=== PATIENT | female | born 1960 | race Caucasian/White ===

== ENCOUNTER → 2019-06-04 | Outpatient (REF) | payer OTHER | LOC: M SFHCWAGY 12:48 | PROVIDERS: ATTEND Advanced Practice Midwife | DX: Z12.4 Encounter for screening for malignant neoplasm of cervix (principal); Z01.419 Encounter for gynecological examination (general) (routine) without abnormal findings ==

== ENCOUNTER → 2019-06-04 | Outpatient (CLI) | payer BC ==
--- NOTE | 2019-06-04 11:55 | REP ---
Pelvic ultrasound including transabdominal, endovaginal and Doppler ultrasound assessment: The uterus is anteverted and upper normal size measuring 9.2 x 501 x 6.9 cm. There are three small uterine fibroids to the uterine fundus anteriorly with and one in the body of the uterus posteriorly, all measuring approximate 1 cm in size. All of these fibroids appear to be subserosal. The endometrium is thickened for patient age measuring 9 ml. There are small cysts within the endometrium. Right ovary: Right ovary is technically difficult to visualize, however, there is a 3.1 x 2.0-0.0 structure in the right adnexa, likely the left ovary. This contains a small 1.5 cm cyst. It is identified on transabdominal images and cannot be identified on endovaginal images. Left ovary: There is a round solid structure in the left adnexa measuring 4.7 x 4.0 x 3.9 cm that is uniformly hypoechoic and does not have the typical ovarian architecture. With color Doppler assessment were unable to establish vascular flow within this structure. This is questionably the left ovary. Immediately adjacent to this structure is crescentic shaped cyst measuring 3.7 x 1.2 x 2.8 cm. The study is technically difficult because of patient disability and the patient inability to be properly positioned for the examination, particularly the endovaginal portion of the examination. The the study is technically suboptimal. I would recommend pelvic MRI for further evaluation. Impression: Thickened endometrium with endometrial cysts. Subserosal 1 cm mucosal fibroids as discussed. The adnexa are poorly evaluated as discussed above. Probable small 1.5 cm right ovarian cyst. Hypoechoic solid structure in the left adnexa, likely the left ovary with a crescentic shaped paraovarian cyst, although imaging is technically difficult and suboptimal as discussed above. Pelvic MRI is recommended for further evaluation. Electronically Signed by Jerry Verma MD 06/04/2019 11:47 A
== END ==
LOC: M WHC 09:22
PROVIDERS: ATTEND Advanced Practice Midwife
DX: N95.0 Postmenopausal bleeding (principal); D25.2 Subserosal leiomyoma of uterus; N83.201 Unspecified ovarian cyst, right side; N83.202 Unspecified ovarian cyst, left side

== ENCOUNTER → 2019-07-05 | Outpatient (CLI) | payer BC, OTHER ==
--- NOTE | 2019-07-05 11:42 | REP ---
MRI PELVIS WITHOUT CONTRAST: Multiple sequences of the pelvis performed in the axial, coronal, and sagittal planes. No IV contrast was administered. Correlation made with pelvic ultrasound 06/04/2019. Uterine length is approximately 9.3 cm. Endometrial thickness is approximately 5 mm, minimally thickened. There are a few subcentimeter nabothian cysts in the region of the cervix. There are at least four fibroids identified. There is a 2 cm anterior fibroid, a 2.3 cm posterior fibroid, a posterior fundal fibroid measuring 1.5 cm and a fibroid in the left uterine body measuring approximately 2 cm in diameter. In the right ovary there is a hypointense nodule on those sequences which is somewhat hyperintense on T1. This measures about 2.0 x 2.0 x 2.5 cm, most consistent with and endometrioma. There is a nodule in the inferior aspect of the left ovary which measures approximately 3.6 cm in diameter with a peripheral septation. It is quite hyperintense on T1 and is mildly hyperintense on T2-weighted images, consistent with an endometrioma. Superiorly there is a lobulated nodule which is hyperintense on both T1 and T2 consistent with an endometrioma measuring approximately 3.5 cm in maximum diameter consistent with an endometrioma. No adenopathy is seen in the pelvis. There is no free fluid. IMPRESSION: Slight endometrial thickening at 5 mm. At least four uterine fibroids are identified. Bilateral ovarian endometriomas as discussed above. Electronically Signed by Jerry Mann MD 07/05/2019 03:16 P
== END ==
LOC: M RAD 09:28
PROVIDERS: ATTEND Obstetrics & Gynecology
DX: D25.9 Leiomyoma of uterus, unspecified (principal); N80.1 Endometriosis of ovary

== ENCOUNTER → 2019-07-26 | Outpatient (REF) | payer OTHER ==
[2019-07-26 17:46] LABS: BASO # 0.1 10^3/uL (0.0-0.2); BASO % 0.6 % (0.0-1.0); EOS % 0.3 % (0.0-3.0); HEMATOCRIT 46.7 % (36.0-47.0); HEMOGLOBIN 15.6 g/dl (12.0-15.5); LYMPH # 1.2 10^3/uL (1.5-5.0); LYMPH % 13.8 % (24.0-44.0); MEAN CORPUSCULAR HEMOGLOBIN 28.6 pg (27.0-33.0); MEAN CORPUSCULAR HGB CONC 33.4 g/dl (32.0-36.5); MEAN CORPUSCULAR VOLUME 85.7 fl (80.0-96.0); MONO # 0.5 10^3/uL (0.0-0.8); MONO % 5.6 % (0.0-5.0); NEUTROPHILS # 6.9 10^3/uL (1.5-8.5); NEUTROPHILS % 79.2 % (36.0-66.0); PLATELET COUNT, AUTOMATED 269 10^3/uL (150-450); RED BLOOD COUNT 5.45 10^6/uL (4.00-5.40); WHITE BLOOD COUNT 8.7 10^3/uL (4.0-10.0)
[2019-07-26 18:05] LABS: ALBUMIN 4.3 GM/DL (3.2-5.2); ALT/SGPT 20 U/L (12-78); BILIRUBIN,TOTAL 0.6 MG/DL (0.2-1.0); BLOOD UREA NITROGEN 12 MG/DL (7-18); CALCIUM LEVEL 9.5 MG/DL (8.8-10.2); CARBON DIOXIDE LEVEL 27 MEQ/L (21-32); CHLORIDE LEVEL 105 MEQ/L (98-107); CHOLESTEROL LEVEL 181 MG/DL (<200); CHOLESTEROL RISK RATIO 3.693 (<5); CREATININE FOR GFR 0.68 MG/DL (0.55-1.30); GLOMERULAR FILTRATION RATE > 60.0 (>45); GLUCOSE, FASTING 97 MG/DL (70-100); HDL CHOLESTEROL 49 MG/DL (>40); LDL CHOLESTEROL 113 MG/DL (<100); NON-HDL-C 132 MG/DL; POTASSIUM SERUM 4.4 MEQ/L (3.5-5.1); SODIUM LEVEL 140 MEQ/L (136-145); THYROID STIMULATING HORMONE 0.839 uIU/ML (0.358-3.740); TOTAL PROTEIN 7.8 GM/DL (6.4-8.2); TRIGLYCERIDES LEVEL 97 MG/DL (<150)
[2019-07-26 19:10] LABS: HEMOGLOBIN A1c 5.4 %
== END ==
LOC: M SFHCPLAZ 14:21
PROVIDERS: ATTEND Family Medicine
DX: R03.0 Elevated blood-pressure reading, without diagnosis of hypertension (principal); Z13.1 Encounter for screening for diabetes mellitus; Z13.220 Encounter for screening for lipoid disorders; R63.4 Abnormal weight loss

== ENCOUNTER → 2019-09-28 | Outpatient (CLI) | payer OTHER ==
[~2019-09-28] MED LIST: CHLO125TA PO
== END ==
LOC: M LABSMTC 09:36
PROVIDERS: ATTEND Anesthesiology
DX: Z01.818 Encounter for other preprocedural examination (principal); Z11.59 Encounter for screening for other viral diseases
CPT/HCPCS: C9803; U0003

== ENCOUNTER 2019-10-01 12:31 | Day surgery (SDC) | payer BC, OTHER ==
[~2019-10-01] VITALS: Ht 157.5 cm; Wt 84.0 kg
[~2019-10-01 12:31] MED LIST changes: +LR 1,000 ML IV SCH
[2019-10-01] MEDS ORDERED: ONDANSETRON 4MG/2ML VIAL IV ONE (14:00)
[2019-10-01] MEDS ORDERED: SCOPOLAMINE 1MG TRANSDERMAL PATCH TOP ONE (14:00)
[2019-10-01 14:10] LABS: BLOOD UREA NITROGEN 19 MG/DL (7-18); CALCIUM LEVEL 9.4 MG/DL (8.8-10.2); CARBON DIOXIDE LEVEL 33 MEQ/L (21-32); CHLORIDE LEVEL 102 MEQ/L (98-107); CREATININE FOR GFR 0.83 MG/DL (0.55-1.30); GLOMERULAR FILTRATION RATE > 60.0 (>45); GLUCOSE, FASTING 115 MG/DL (70-100); POTASSIUM SERUM 2.6 MEQ/L (3.5-5.1); SODIUM LEVEL 141 MEQ/L (136-145)
[2019-10-01] MEDS ORDERED: KCL 10MEQ/100ML SWI (KRUN) SINGLE DOSE IV ONE ×2 (14:30)
[2019-10-01] MEDS ORDERED: ROCURONIUM BROMIDE 50 MG/5 ML VIAL As Ordered ONE (14:58)
[2019-10-01] MEDS ORDERED: fentaNYL 250 MCG/5 ML INJECTION (J3010) As Ordered ONE (14:58)
[2019-10-01] MEDS ORDERED: LIDOCAINE 2% 100MG/5ML SDV (FOR ANES.) As Ordered ONE (14:58)
[2019-10-01] MEDS ORDERED: ONDANSETRON 4MG/2ML VIAL As Ordered ONE (14:58)
[2019-10-01] MEDS ORDERED: MIDAZOLAM INJ 2MG/2ML VIAL (J2250 PER 1MG) As Ordered ONE (14:58)
[2019-10-01] MEDS ORDERED: dexameTHASONE 4 MG/ML 1ML VIAL (J1100 PER 1MG) As Ordered ONE (14:58)
[2019-10-01] MEDS ORDERED: propofoL 200 MG/20 ML VIAL As Ordered ONE (14:58)
[2019-10-01] MEDS ORDERED: METOCLOPRAMIDE INJ 10MG/2ML VIAL (J2765 PER 1) As Ordered ONE (15:49)
[2019-10-01] MEDS ORDERED: ACETAMINOPHEN 1000MG 100ML IV BTL (OFIRMEV) (J0131 PER 10MG) As Ordered ONE (15:53)
[2019-10-01] MEDS ORDERED: KETOROLAC 60MG 2ML VIAL As Ordered ONE (15:53)
[2019-10-01] MEDS ORDERED: ePHEDrine SULFATE 25 MG/5 ML(5MG/ML) SYRINGE As Ordered ONE (16:13)
[2019-10-01] MEDS ORDERED: fentaNYL 100 MCG/2 ML INJECTION (J3010) IV PRN (17:00)
[2019-10-01] MEDS ORDERED: oxyCODONE 5MG TAB PO PRN (17:00)
[2019-10-01] MEDS ORDERED: ONDANSETRON 4MG/2ML VIAL IV PRN (17:00)
[2019-10-01] MEDS ORDERED: LR 1,000 ML IV SCH (17:00)
--- NOTE | 2019-10-01 17:14 | ROOPDOC ---
[facility] Report Of Operation Report of Operation DATE OF PROCEDURE: 10/01/19 PREOPERATIVE DIAGNOSES: 1. Postmenopausal bleeding. POSTOPERATIVE DIAGNOSES: 1. Endometrial polyp. PROCEDURE PERFORMED: 1. Hysteroscopy, dilation and curettage with MyoSure. 2. Cervical biopsy 3. Pap smear SURGEON: Isidra Torres MD CLOCK MAKER: None. ANESTHESIA: General via laryngeal mask airway ESTIMATED BLOOD LOSS: 5ml IV FLUIDS: 200 mL of lactated Ringer's solution. URINE OUTPUT: Not obtained. PREOPERATIVE ANTIBIOTICS: None. OPERATIVE FINDINGS: Patient with an approximately 1 cm posterior endometrial polyp. Bilateral ostia was visualized. Otherwise, normal appearing endometrial cavity. Raised area at 6 o'clock position of the cervix, which was biopsy. DESCRIPTION OF PROCEDURE: After informed consent was obtained written consent was reviewed, the patient brought to operating room where she was placed under general anesthesia. She was then placed in lithotomy position and was prepped and draped in normal sterile fashion. Time-out in the operating room was then performed identifying the patient, procedure be performed as well as drug allergies. Olin speculum was placed revealing the cervix. Anterior lip of the cervix grasped with a single-tooth tenaculum. The uterus then sounded to 10.5 cm. The cervix then sequentially dilated using Hanks dilators. Hysteroscope was then advanced through the cervical os and endometrial cavity was observed with the above-noted findings. MyoSure device was then placed in the hysteroscope and endometrial polyp was morcellated. Hysteroscope was then removed as well as the MyoSure. Sharp curette was then advanced through the cervical os to the level of the fundus and the uterus curetted in a 360 degree fashion. Tissue was obtained and this was sent to pathology for evaluation. Next, a cervical biopsy was taken at the 6 o'clock position. Pap smear was also obtained. The single-tooth tenaculum was then removed. Tenaculum sites were noted be hemostatic. The speculum was then removed. The patient was then taken out of lithotomy position, was awakened from general anesthesia and taken recovery in stable condition. ISIDRA TORRES MD. Oct 01, 2019 17:14
[2019-10-01] MEDS ORDERED: POTASSIUM CHLORIDE 10 MEQ SR TABLET PO ONE (17:15)
--- NOTE | 2019-10-01 17:31 | ECGEPIP ---
[facility] Test Date: 2019-10-01 Pat Name: LEI MYERS Department: Room: - Gender: Female Section Beamer: SNEHAL : 1960 Requested By: BEAR Maravilla Order Number: [id number] Reading MD: Tony Arreola Measurements Intervals [place] Rate: 77 P: 44 SC: 171 QRS: -78 QRSD: 119 T: 22 QT: 381 QTc: 432 Interpretive Statements SINUS RHYTHM POSSIBLE LEFT ATRIAL ENLARGEMENT MARKED LEFT AXIS DEVIATION POOR R WAVE PROGRESSION PATTERN CONSISTENT WITH PULMONARY DISEASE MODERATE INTRAVENTRICULAR CONDUCTION DELAY No prior tracing in the system Electronically Signed on 10-01-2019 17:31:11 EDT by Tony Arreola
[2019-10-01 19:25] VITALS: BP 135/74
== END 2019-10-01 19:25 | disposition home or self-care (01) ==
LOC: M SDC 12:31
PROVIDERS: ATTEND Obstetrics & Gynecology
DX: N84.0 Polyp of corpus uteri (principal); N95.0 Postmenopausal bleeding; I10 Essential (primary) hypertension; Z12.4 Encounter for screening for malignant neoplasm of cervix; Z85.828 Personal history of other malignant neoplasm of skin
CPT/HCPCS: 36415; 58558; 80048; 86850; 86900; 86901; 88304; 88305; 93005; G0123; J0131; J1100; J1885; J2250; J2405; J2765; J3010

== ENCOUNTER 2019-11-01 23:30 | Emergency (ER) | payer BC, OTHER ==
[~2019-11-01 23:30] MED LIST changes: -LR 1,000 ML IV SCH
[2019-11-02] MEDS ORDERED: LIDOCAINE 2% MDV 20ML VIAL As Ordered ONE (22:44)
[2019-11-02] MEDS ORDERED: BOOSTRIX/ADACEL VACCINE (DIPHTH/PERTUSS/ACELL/TETANUS) 0.5ML SYR As Ordered ONE (23:29)
== END 2019-11-02 02:30 | disposition home or self-care (01) ==
LOC: M ED 23:30
DX: F43.20 Adjustment disorder, unspecified (principal); I10 Essential (primary) hypertension; Z79.899 Other long term (current) drug therapy

== ENCOUNTER 2020-09-23 10:35 | Emergency (ER) | payer BC, OTHER ==
[~2020-09-23] VITALS: Ht 157.5 cm; Wt 80.4 kg
[2020-09-23] MEDS ORDERED: LIDOCAINE 1% MDV 20ML VIAL SC ONE (11:10)
[2020-09-23] MEDS ORDERED: ACETAMINOPHEN 500 MG TAB PO ONE (12:05)
[2020-09-23] MEDS ORDERED: BACT800T5 PO (12:06)
[2020-09-23] MEDS ORDERED: NEOSPORIN OINT 0.9 GM PKT TOP ONE (12:10)
[2020-09-23 12:13] VITALS: BP 143/77
[2020-09-24] MEDS ORDERED: NEOSPORIN TOP OINT 15GM TOP ONE (09:00)
== END 2020-09-23 12:30 | disposition home or self-care (01) ==
LOC: M ED 10:35
DX: S60.451A Superficial foreign body of left index finger, initial encounter (principal); W45.8XXA Other foreign body or object entering through skin, initial encounter; Y92.009 Unspecified place in unspecified non-institutional (private) residence as the place of occurrence of the external cause; Y93.89 Activity, other specified; Y99.8 Other external cause status; L03.011 Cellulitis of right finger; R03.0 Elevated blood-pressure reading, without diagnosis of hypertension

== ENCOUNTER → 2021-08-20 | Outpatient (CLI) | payer BC, OTHER ==
[~2021-08-20] MED LIST changes: +BACT800T5 PO
== END ==
LOC: M CARPUL 13:28
PROVIDERS: ATTEND Student in an Organized Health Care Education/Training Program
DX: I35.8 Other nonrheumatic aortic valve disorders (principal); R60.0 Localized edema

== ENCOUNTER → 2021-10-02 | Outpatient (CLI) | payer BC, OTHER ==
[2021-10-02 13:46] LABS: HEMATOCRIT 41.1 % (36.0-47.0); MEAN CORPUSCULAR HEMOGLOBIN 30.5 pg (27.0-33.0); MEAN CORPUSCULAR HGB CONC 34.1 g/dl (32.0-36.5); MEAN CORPUSCULAR VOLUME 89.5 fl (80.0-96.0); PLATELET COUNT, AUTOMATED 279 10^3/uL (150-450); RED BLOOD COUNT 4.59 10^6/uL (4.00-5.40); WHITE BLOOD COUNT 7.3 10^3/uL (4.0-10.0)
[2021-10-02 14:32] LABS: ALBUMIN 3.7 GM/DL (3.2-5.2); ALT/SGPT 15 U/L (12-78); BILIRUBIN,TOTAL 0.4 MG/DL (0.2-1.0); BLOOD UREA NITROGEN 17 MG/DL (7-18); CALCIUM LEVEL 8.7 MG/DL (8.8-10.2); CARBON DIOXIDE LEVEL 29 MEQ/L (21-32); CHLORIDE LEVEL 106 MEQ/L (98-107); CHOLESTEROL LEVEL 165 MG/DL (<200); CHOLESTEROL RISK RATIO 2.357 (<5); CREATININE FOR GFR 0.59 MG/DL (0.55-1.30); GLOMERULAR FILTRATION RATE > 60.0 (>45); GLUCOSE, FASTING 75 MG/DL (70-100); HDL CHOLESTEROL 70 MG/DL (>40); LDL CHOLESTEROL 85 MG/DL (<100); NON-HDL-C 95 MG/DL; POTASSIUM SERUM 4.3 MEQ/L (3.5-5.1); SODIUM LEVEL 140 MEQ/L (136-145); TOTAL PROTEIN 6.7 GM/DL (6.4-8.2); TRIGLYCERIDES LEVEL 50 MG/DL (<150)
== END ==
LOC: M PLALAB 11:06
PROVIDERS: ATTEND Student in an Organized Health Care Education/Training Program
DX: I10 Essential (primary) hypertension (principal); Z13.29 Encounter for screening for other suspected endocrine disorder; Z13.1 Encounter for screening for diabetes mellitus

== ENCOUNTER → 2021-11-12 | Outpatient (REF) | payer OTHER | LOC: M SFHCPLAZ 11:25 | PROVIDERS: ATTEND Family Medicine | DX: F41.8 Other specified anxiety disorders (principal) ==

== ENCOUNTER → 2021-11-12 | Outpatient (CLI) | payer OTHER | LOC: M PLALAB 11:58 | PROVIDERS: ATTEND Student in an Organized Health Care Education/Training Program | DX: F41.8 Other specified anxiety disorders (principal) ==

== ENCOUNTER 2021-12-10 11:43 | Emergency (ER) | payer BC, OTHER ==
[~2021-12-10] VITALS: Ht 154.9 cm; Wt 81.6 kg
[2021-12-10] MEDS ORDERED: LISI5TAB11 (12:06)
[2021-12-10] MEDS ORDERED: ALPR0.5T3 (12:06)
[2021-12-10] MEDS ORDERED: FLUO40CA PO (12:06)
[2021-12-10 15:23] VITALS: BP 155/82
== END 2021-12-10 15:31 | disposition short-term general hospital (02) ==
LOC: M ED 11:43
DX: S12.101A Unspecified nondisplaced fracture of second cervical vertebra, initial encounter for closed fracture (principal); S06.0X0A Concussion without loss of consciousness, initial encounter; S40.021A Contusion of right upper arm, initial encounter; W01.198A Fall on same level from slipping, tripping and stumbling with subsequent striking against other object, initial encounter; Y92.009 Unspecified place in unspecified non-institutional (private) residence as the place of occurrence of the external cause; Z79.899 Other long term (current) drug therapy

== ENCOUNTER → 2022-04-26 | Outpatient (CLI) | payer BC, OTHER ==
[~2022-04-26] MED LIST changes: +ALPR0.5T3; +FLUO40CA PO; +LISI5TAB11
== END ==
LOC: M PLALAB 13:58
PROVIDERS: ATTEND Student in an Organized Health Care Education/Training Program
DX: E55.9 Vitamin D deficiency, unspecified (principal); R60.0 Localized edema

== ENCOUNTER → 2023-08-15 | Outpatient (CLI) | payer OTHER ==
[2023-08-15 13:40] LABS: BASO # 0.1 10^3/uL (0.0-0.2); BASO % 0.7 % (0.0-1.0); EOS # 0.1 10^3/uL (0.0-0.5); EOS % 1.1 % (0.0-3.0); HEMATOCRIT 42.9 % (36.0-47.0); LYMPH # 1.3 10^3/uL (1.5-5.0); LYMPH % 16.1 % (24.0-44.0); MEAN CORPUSCULAR HEMOGLOBIN 28.6 pg (27.0-33.0); MEAN CORPUSCULAR HGB CONC 32.6 g/dl (32.0-36.5); MEAN CORPUSCULAR VOLUME 87.7 fl (80.0-96.0); MONO # 0.6 10^3/uL (0.0-0.8); MONO % 7.4 % (2.0-8.0); NEUTROPHILS % 74.2 % (36.0-66.0); PLATELET COUNT, AUTOMATED 343 10^3/uL (150-450); RED BLOOD COUNT 4.89 10^6/uL (4.00-5.40); WHITE BLOOD COUNT 8.1 10^3/uL (4.0-10.0)
[2023-08-15 14:13] LABS: ALBUMIN 3.3 G/DL (3.2-5.2); ALKALINE PHOSPHATASE 91 U/L (46-116); ALT/SGPT 12 U/L (7.0-40); AST/SGOT 9 U/L (<34); BILIRUBIN,TOTAL 0.5 MG/DL (0.3-1.2); BLOOD UREA NITROGEN 13 MG/DL (9-23); CALCIUM LEVEL 9.2 MG/DL (8.3-10.6); CARBON DIOXIDE LEVEL 29 MMOL/L (20-31); CHLORIDE LEVEL 106 MMOL/L (98-107); CHOLESTEROL LEVEL 171 MG/DL (<200); CHOLESTEROL RISK RATIO 3.45 (<5); CREATININE FOR GFR 0.68 MG/DL (0.55-1.30); GLOMERULAR FILTRATION RATE > 60.0 (>45); GLUCOSE, FASTING 89 MG/DL (74-106); HDL CHOLESTEROL 49.5 MG/DL (>40); LDL CHOLESTEROL 104.7 MG/DL (<100); NON-HDL-C 121.5 MG/DL; POTASSIUM SERUM 4.4 MMOL/L (3.5-5.1); SODIUM LEVEL 140 MMOL/L (136-145); TOTAL PROTEIN 6.6 G/DL (5.7-8.2); TRIGLYCERIDES LEVEL 84 MG/DL (<150)
== END ==
LOC: M PLALAB 11:31
PROVIDERS: ATTEND Student in an Organized Health Care Education/Training Program
DX: I10 Essential (primary) hypertension (principal); Z13.1 Encounter for screening for diabetes mellitus; Z13.29 Encounter for screening for other suspected endocrine disorder; Z13.220 Encounter for screening for lipoid disorders

== ENCOUNTER → 2024-06-21 | Outpatient (REF) | payer OTHER | LOC: M SFHCPLAZ 18:57 | PROVIDERS: ATTEND Student in an Organized Health Care Education/Training Program | DX: I10 Essential (primary) hypertension (principal); Z13.1 Encounter for screening for diabetes mellitus; Z13.29 Encounter for screening for other suspected endocrine disorder; Z13.220 Encounter for screening for lipoid disorders; Z86.39 Personal history of other endocrine, nutritional and metabolic disease; Z53.9 Procedure and treatment not carried out, unspecified reason ==

== ENCOUNTER → 2024-08-23 | Outpatient (CLI) | payer MEDICARE, OTHER ==
[2024-08-23 14:07] LABS: CHOLESTEROL RISK RATIO 3.67 (<5); HDL CHOLESTEROL 54.9 MG/DL (>40); LDL CHOLESTEROL 129.1 MG/DL (<100); NON-HDL-C 147.1 MG/DL
[2024-08-23 14:10] LABS: FREE T4 1.21 NG/DL (0.89-1.76); THYROID STIMULATING HORMONE 1.375 uIU/ML (0.55-4.78); TOTAL 25(OH) VITAMIN D 32.6 NG/ML (20.0-100.0)
[2024-08-23 14:16] LABS: HEMATOCRIT 46.4 % (36.0-47.0); HEMOGLOBIN 15.2 g/dl (12.0-15.5); MEAN CORPUSCULAR HEMOGLOBIN 28.8 pg (27.0-33.0); MEAN CORPUSCULAR HGB CONC 32.8 g/dl (32.0-36.5); MEAN CORPUSCULAR VOLUME 87.9 fl (80.0-96.0); PLATELET COUNT, AUTOMATED 329 10^3/uL (150-450); RED BLOOD COUNT 5.28 10^6/uL (4.00-5.40); WHITE BLOOD COUNT 9.2 10^3/uL (4.0-10.0)
[2024-08-23 14:25] LABS: HEMOGLOBIN A1c 5.2 % (4.0-6.0)
== END ==
LOC: M PLALAB 10:22
DX: Z13.1 Encounter for screening for diabetes mellitus (principal); Z13.29 Encounter for screening for other suspected endocrine disorder; I10 Essential (primary) hypertension

== ENCOUNTER → 2024-11-23 | Outpatient (REF) | payer MEDICARE | LOC: M SFHCPLAZ 11:01 | PROVIDERS: ATTEND Family Medicine | DX: Z53.9 Procedure and treatment not carried out, unspecified reason (principal) ==

== ENCOUNTER → 2025-01-19 | Outpatient (CLI) | payer MEDICARE ==
[2025-01-19 14:07] LABS: TOTAL 25(OH) VITAMIN D 38.4 NG/ML (20.0-100.0)
[2025-01-19 14:08] LABS: ALT/SGPT 19.0 U/L (7.0-40); AST/SGOT 15.0 U/L (<34); CALCIUM LEVEL 9.4 MG/DL (8.3-10.6); CARBON DIOXIDE LEVEL 30.0 MMOL/L (20-31); CHLORIDE LEVEL 101.0 MMOL/L (98-107); CHOLESTEROL LEVEL 147.0 MG/DL (<200); CHOLESTEROL RISK RATIO 2.6 (<5); CREATININE FOR GFR 0.78 MG/DL (0.55-1.30); GLOMERULAR FILTRATION RATE 84.2 (>45); LDL CHOLESTEROL 76.0 MG/DL (<100); NON-HDL-C 90.6 MG/DL; POTASSIUM SERUM 4.3 MMOL/L (3.5-5.1); SODIUM LEVEL 142.0 MMOL/L (136-145); TRIGLYCERIDES LEVEL 73.0 MG/DL (<150)
== END ==
LOC: M PLALAB 11:04
DX: I10 Essential (primary) hypertension (principal); E78.5 Hyperlipidemia, unspecified; E55.9 Vitamin D deficiency, unspecified

== ENCOUNTER → 2025-01-25 | Outpatient (REF) | payer MEDICARE | LOC: M SFHCPLAZ 12:02 | PROVIDERS: ATTEND Family Medicine | DX: Z53.9 Procedure and treatment not carried out, unspecified reason (principal) ==